=== PATIENT | male | born 1980 | race Hispanic/Latino ===

== ENCOUNTER 2017-09-06 11:40 | Observation (INO) | payer OTHER ==
[~2017-09-06] VITALS: Ht 177.8 cm; Wt 67.8 kg
--- NOTE | 2017-09-07 09:22 | HP ---
[facility] [address], [place] [address] Signed ADMISSION DATE: 09/06/2017 REASON FOR ADMISSION: Right lower abdominal pain, possible chronic appendicitis. HISTORY OF PRESENT ILLNESS: This 37-year-old man has been two months incarcerated at [facility], previously at the [facility] assisted in [place]. For over a year (since August 2016), he has had episodic, and recurring right lower abdominal pain. Today, he had complaints of similar such finding without associated nausea, or vomiting, and was evaluated at the assisted including an ultrasound, which showed thickening of the appendix, a fecalith that was small only 3 mm and some periappendiceal fluid. He was sent to the emergency room where he was thoroughly evaluated by Dr. Lara. Her evaluation showed him to have a normal white count of 7.9, hematocrit of 45.4, and only mild tenderness in the right lower abdomen. His Chem profile was normal. Given the ambiguity of the findings, and the findings on the ultrasound, a CT scan was obtained. A CT scan which was performed and has been reviewed by me, as well as the radiologist of course described a normal abdomen except for fair amount of stool within the colon, and majority of the appendix well visualized and normal, but the tip was not definitively seen. There is no periappendiceal inflammatory changes to suggest acute appendicitis, however. There was moderate distention of the urinary bladder. This was interpreted by Dr. Dirk Schmidt. My examination shows him to have mild tenderness at McBurney's point. He shows mild dehydration as well. He is admitted for further evaluation and observation. PAST MEDICAL HISTORY: Rather unremarkable. He denies any prior abdominal operations. MEDICATIONS: He has no ongoing medications. ALLERGIES: He has no known drug allergies. SOCIAL HISTORY: He is incarcerated at [facility] and has been for 2 months. He has previously been incarcerated [facility]. PHYSICAL EXAMINATION: Electronically Signed By: SUSAN GUSMAN MD 09/07/17 0922 PATIENT NAME: ASH PARK HISTORY AND PHYSICAL DATE OF : 78 REPORT #: [id number] PHYSICIAN: SUSAN GUSMAN MD PCP: TOYA KEITH MD REPORT IS CONFIDENTIAL AND NOT TO BE RELEASED WITHOUT AUTHORIZATION [facility] [address], [place] [address] Signed GENERAL: A tall, thin, white man whose mucous membranes are somewhat dry. Trachea is midline. CHEST: Shows normal respiratory excursion without tachypnea. HEART: Heart rate is normal. ABDOMEN: Is very flat. Rovsing sign is equivocal. There is mild tenderness directly at McBurney's point. EXTREMITIES: Shows no clubbing, cyanosis, or edema. SKIN: Shows multiple tattoos. LAB STUDIES: Are as previously noted with a white count of 7.9, hematocrit 45.4, platelets 155,000. Chem profile was normal. Lipase is 30. Urinalysis is normal. ASSESSMENT: His longstanding right lower abdominal pain with recurrent exacerbations may represent chronic appendicitis. The ultrasound is somewhat vexing in light of the CT scan. However, he does have mild tenderness in that area. Consideration will be made for observation, and if non improvement, consideration for appendectomy on the basis of his fecalith findings, persistent recurrent tenderness in the right lower abdomen and so on. He shows no other abnormality that I can tell. I have discussed this with him in detail. He understands and agrees. MD TC Barajas/CASSIUSL /[id number] cc: Marcelo Kee MD Provider, Radha MCQUEEN. Copies: MARCELO KEE MD ~ Electronically Signed By: SUSAN GUSMAN MD 09/07/17 0922 PATIENT NAME: ASH PARK HISTORY AND PHYSICAL DATE OF : 78 REPORT #: [id number] PHYSICIAN: SUSAN GUSMAN MD PCP: TOYA KEITH MD REPORT IS CONFIDENTIAL AND NOT TO BE RELEASED WITHOUT AUTHORIZATION
[2017-09-07] MEDS ORDERED: MOTRIN IB200 MG PO (20:33)
[2017-09-07] MEDS ORDERED: NORCO 5-325 TA1 EACH PO (20:34)
[2017-09-07] MEDS ORDERED: ACETAMINOPHEN325 M1 PO (20:34)
--- NOTE | 2017-09-07 20:46 | OR ---
[facility] [address] [place], [place] [address] Signed DATE OF OPERATION: 09/07/2017 SURGEON: Susan Gusman MD PREOPERATIVE DIAGNOSES: 1. Persistent right lower abdominal pain with chronic recurrent right lower abdominal pain. 2. Fecalith on ultrasound and CT scan. 3. Worsened pain and symptoms with overnight observation. POSTOPERATIVE DIAGNOSIS: Moderately dilated appendix with fecalith. No evidence of terminal ileitis or other intraabdominal pathology. PROCEDURE: Diagnostic laparoscopy with laparoscopic appendectomy. ANESTHESIA: General endotracheal (Geetha Avila CRNA). INDICATION: This 37-year-old man is a prisoner at [facility] and has been seen in the emergency room yesterday by Dr. Lara with complaints of right lower abdominal pain. The patient has had episodes of right lower abdominal pain for the past year. He was previously at [facility] transferring to [facility] two months ago. Evaluation in the emergency room included a CBC and Chem profile, which was normal. He had mild tenderness in the right lower abdomen. An ultrasound had been performed at [facility], which was interpreted by Dr. Azevedo as showing a thickened appendix with periappendiceal fluid and a fecalith. Evaluation in the emergency room included a CT scan of the abdomen, which did not show acute inflammatory change. However, the patient is very thin and he had no periappendiceal fat to show typical stranding and so on. As his white count has been normal and he has had recurrent pain, findings as noted on ultrasound and tenderness, which is not severe, he was actively observed overnight in the hospital without antibiotics or other interventions. His pain worsened through the night and was quite a bit more painful this morning. Clinical examination shows him to Electronically Signed By: SUSAN GUSMAN MD 09/07/17 2046 PATIENT NAME: ASH PARK OPERATIVE REPORT DATE OF : 78 REPORT #: [id number] PHYSICIAN: SUSAN GUSMAN MD PCP: TOYA KEITH MD REPORT IS CONFIDENTIAL AND NOT TO BE RELEASED WITHOUT AUTHORIZATION [facility] [address] [place], [place] [address] Signed have only mild tenderness. No sign of generalized peritonitis and his white count remains normal. On the basis of his findings or lack thereof, I have recommended laparoscopy with probable laparoscopic appendectomy. The risks of bleeding, infection, need for open procedure, failure of diagnosis, misdiagnosis, need for other indicated procedures and so forth were reviewed in detail with him. He understands and wished to proceed. FINDINGS: He had numerous tattoo smith in the abdomen, but all of them were avoided as regard incisions. Appendix itself did have mild injection. No sign of suppuration. There was dilation to the distal 1 cm of the appendix, which appeared to have fibrous obliteration. There was no sign of perforation, gangrene, or other advanced signs of appendicitis. Appendectomy was performed as he does have fecalith. The terminal ileum and the remaining small bowel were normal showing no sign of terminal ileitis and no sign of Meckel's diverticular disease. The colon appeared normal grossly as was the gallbladder, the pylorus of the stomach, the body of the stomach, and left and right lobes of the liver. PROCEDURE: The patient was brought to the operating room, given a general endotracheal anesthetic. Preoperative antibiotic Ancef and Flagyl have been given. Sequential compression device stockings were used and subcutaneous heparin had been administered. After satisfactory general endotracheal anesthesia, a Pierre catheter was placed. The abdomen was clipped and prepared with chlorhexidine solution and draped sterilely. An infraumbilical incision was made, taking care to avoid interruption of one of his tattoo smith. Using an open Richard cannula technique, the abdomen was entered and pneumoperitoneum achieved to a level of 14 mmHg of carbon dioxide gas. Intraabdominal inspection showed no sign of ascites or carcinomatosis. The small amount of fluid within the abdomen did not much and it did not look particularly purulent. An additional trocar was placed in the epigastric area, 12 mm in size, allowing for put replacement of the camera to that site. Single hand manipulation of the cecum showed the appendix to be somewhat whitish with the injected blood vessels, but no sign of suppuration proper. Examination of the pericolic gutter. The terminal ileum at first glance appeared normal as did the liver and the gallbladder. Right lower abdominal 5 mm incision was placed under direct visualization allowing for two hand manipulation. The appendix was manipulated into place and although I could not say that it had acute appendicitis, the possibility appendiceal colic and chronic appendicitis could not be excluded. A window was created between the appendix and the mesoappendix. The base of the appendix skeletonized allowing for transection at the base of the appendix with Endo-DANTE stapling device. The mesoappendix was then placed in Electronically Signed By: SUSAN GUSMAN MD 09/07/17 2046 PATIENT NAME: ASH PARK OPERATIVE REPORT DATE OF : 78 REPORT #: [id number] PHYSICIAN: SUSAN GUSMAN MD PCP: TOYA KEITH MD REPORT IS CONFIDENTIAL AND NOT TO BE RELEASED WITHOUT AUTHORIZATION [address] [place], [place] [address] Signed position for similar transection, which was accomplished without problem. A small amount of bleeding on the staple line was secured with cautery and hemoclips. Appendix was placed in an endobag and extracted through the infraumbilical port site and passed for pathology. Reinspection of the abdominal contents was undertaken. There was no sign of right inguinal hernia in any way. The terminal ileum was entirely normal. Small bowel was carefully run from the terminal ileum more proximally to the ligament of Treitz showing no sign of Meckel's diverticulum, perforation, or other abnormality. The sigmoid was somewhat redundant, but was normal otherwise as was the right colon. Examination of the upper abdomen showed a normal liver and gallbladder overall. The pylorus was normal. There was no sign of perforated ulcer. The stomach body was normal. Having showed no other abnormality requiring attention, the trocars were removed under direct visualization showing no sign of bleeding. The infraumbilical fascial incision was reapproximated with interrupted 0 Vicryl suture. All wounds were copiously irrigated with saline solution and skin closed with interrupted 3-0 Vicryl. Steri-Strips were applied. The patient was ultimately extubated and anticipating transfer to the recovery room in good condition. BLOOD LOSS: Minimal. COMPLICATIONS: None. MD TC Barajas/LORI /[id number] cc: Sandie Kee MD [facility] Electronically Signed By: SUSAN GUSMAN MD 09/07/17 2046 PATIENT NAME: ASH PARK OPERATIVE REPORT DATE OF : 78 REPORT #: [id number] PHYSICIAN: SUSAN GUSMAN MD PCP: TOYA KEITH MD REPORT IS CONFIDENTIAL AND NOT TO BE RELEASED WITHOUT AUTHORIZATION [address] [address] Signed Copies: SANDIE KEE MD ~ Electronically Signed By: SUSAN GUSMAN MD 09/07/17 2046 PATIENT NAME: ASH PARK OPERATIVE REPORT DATE OF : 78 REPORT #: [id number] PHYSICIAN: SUSAN GUSMAN MD PCP: TOYA KEITH MD REPORT IS CONFIDENTIAL AND NOT TO BE RELEASED WITHOUT AUTHORIZATION
== END 2017-09-07 21:35 | disposition home or self-care (01) ==
LOC: ED 11:40 → MS 11:42
PROVIDERS: ADMIT Surgery
PROC: 0DTJ4ZZ Resection of Appendix, Percutaneous Endoscopic Approach (ICD-10-PCS; principal; 2017-09-07 11:00)
DX: K38.1 Appendicular concretions (principal); K38.8 Other specified diseases of appendix
CPT/HCPCS: 00840; 36415; 74177; 80053; 81001; 83690; 85025; 96361; 96365; 96372; 96375; 96376; 99285; G0378; J0330; J0461; J0690; J1170; J1644; J2270; J2704; J3010; J7120; Q9967